=== PATIENT | male | born 1935 | race Two or more races ===

== ENCOUNTER 2023-08-29 20:18 | Inpatient (IN) | payer MEDICAID ==
[~2023-08-29] VITALS: Ht 152.4 cm; Wt 71.7 kg
[2023-08-29] MEDS ORDERED: hydrALAZINE HCL 20 MG/1 ML VIAL ONE ×2 (20:44→22:43)
[2023-08-29] MEDS: hydrALAZINE HCL 20 MG/1 ML VIAL IV ONE ×2 (20:45→22:48)
[2023-08-29 20:59] LABS: BASOPHILS % (AUTO) 0.3 % (0.0-2.0); EOSINOPHILS # (AUTO) 0.5 K/uL (0.0-0.7); EOSINOPHILS % (AUTO) 4.6 % (0.0-7.0); HEMATOCRIT 43.9 % (36.7-47.1); HEMOGLOBIN 14.8 g/dL (12.5-16.3); LYMPHOCYTES # (AUTO) 2.4 K/uL (0.8-4.8); LYMPHOCYTES % (AUTO) 21.8 % (20.5-51.5); MEAN CORPUSCULAR HEMOGLOBIN 29.5 uug (23.8-33.4); MEAN CORPUSCULAR HGB CONC 34 g/dL (32.5-36.3); MEAN CORPUSCULAR VOLUME 87.3 fL (73.0-96.2); MONOCYTES # (AUTO) 1.1 K/uL (0.1-1.30); MONOCYTES % (AUTO) 9.7 % (0.0-11.0); NEUTROPHILS # (AUTO) 7.1 K/uL (1.8-8.9); NEUTROPHILS % (AUTO) 63.6 % (38.5-71.5); PLATELET COUNT (AUTO) 304 K/uL (152-348); RED BLOOD CELL COUNT(AUTO) 5.03 MIL/uL (4.06-5.63); RED CELL DISTRIBUTION WIDTH 13.4 % (12.1-16.2); WHITE BLOOD COUNT (AUTO) 11.1 K/uL (3.6-10.2)
[2023-08-29 21:06] LABS: CALCIUM 9.1 mg/dL (8.5-10.1); CARBON DIOXIDE 29 mmol/L (21-32); CHLORIDE 91 mmol/L (98-107); GLUCOSE 115 mg/dL (74-106); POTASSIUM 3.2 mmol/L (3.5-5.1); SODIUM SERUM 133 mmol/L (136-145); UREA NITROGEN, BLOOD 5 mg/dL (7-18)
[2023-08-29 21:20] LABS: ALANINE AMINOTRANSFERASE 16 U/L (16-63); ALBUMIN 4.4 g/dL (3.4-5.0); ALKALINE PHOSPHATASE 78 U/L (50-136); ASPARTATE AMINOTRANSFERASE 17 U/L (15-37); BILIRUBIN,DIRECT 0.2 mg/dL (0.0-0.2); BILIRUBIN,TOTAL 0.5 mg/dL (0.2-1.0); NT-PRO BNP 547 pg/mL (0-125); TOTAL PROTEIN, SERUM 8.7 g/dL (6.4-8.2)
[2023-08-29] MEDS ORDERED: SWABABLE VALVE TRANSFER SET EA MC ONE (22:53)
[2023-08-29] MEDS ORDERED: IV NORMAL SALINE 250 ML IV ONE (22:53)
[2023-08-29] MEDS ORDERED: IOHEXOL 350 100 ML INFUS..BTL ONE (22:54)
[2023-08-29] MEDS: IV NORMAL SALINE 1000 ML BAG IV ONE (23:15)
[2023-08-30] VITALS (13 sets, daily range): BP systolic 97–186; BP diastolic 53–106; TEMP 97.4–98.3; O2SAT 95–98
[2023-08-30] MEDS ORDERED: hydrALAZINE HCL 20 MG/1 ML VIAL ONE ×2 (02:42→06:43)
[2023-08-30] MEDS: hydrALAZINE HCL 20 MG/1 ML VIAL IV ONE (02:50)
[2023-08-30] MEDS ORDERED: ACETAMINOPHEN 325 MG TABLET PO PRN (04:30)
[2023-08-30] MEDS ORDERED: POTASSIUM CHLORIDE 20 MEQ POWDER PACKET PO ONE (04:30)
[2023-08-30] MEDS ORDERED: ONDANSETRON 4 MG/2 ML VIAL IV PRN (04:30)
[2023-08-30] MEDS ORDERED: MAGNESIUM HYDROXIDE 30 ML LIQUID UDC PO PRN (04:30)
[2023-08-30] MEDS ORDERED: NICARDIPINE IN NS 200 ML IV PRN ×2 (06:30→08:15)
[2023-08-30] MEDS ORDERED: DILTIAZEM HCL 25 MG IV ONE (06:35)
[2023-08-30] MEDS: hydrALAZINE HCL 20 MG/1 ML VIAL IV PRN (06:44)
[2023-08-30] MEDS: DILTIAZEM HCL IV 10 MG in IV DEXTROSE 5% 100 ML IV ONE (06:47)
[2023-08-30] MEDS: hydrALAZINE HCL 50 MG TABLET PO SCH (08:33)
[2023-08-30] MEDS: POTASSIUM CHLORIDE 20 MEQ TAB.PRT.SR PO ONE (08:34)
[2023-08-30] MEDS: LOSARTAN POTASSIUM 50 MG TABLET PO SCH (08:34)
[2023-08-30 10:04] LABS: BASOPHILS # (AUTO) 0.1 K/UL (0.0-0.2); BASOPHILS % (AUTO) 0.8 % (0.0-2.0); EOSINOPHILS # (AUTO) 0.1 K/uL (0.0-0.7); EOSINOPHILS % (AUTO) 0.7 % (0.0-7.0); HEMATOCRIT 45.2 % (36.7-47.1); HEMOGLOBIN 15.1 g/dL (12.5-16.3); LYMPHOCYTES # (AUTO) 1.4 K/uL (0.8-4.8); LYMPHOCYTES % (AUTO) 8.8 % (20.5-51.5); MEAN CORPUSCULAR HEMOGLOBIN 29.2 uug (23.8-33.4); MEAN CORPUSCULAR HGB CONC 34 g/dL (32.5-36.3); MEAN CORPUSCULAR VOLUME 87.1 fL (73.0-96.2); MONOCYTES # (AUTO) 1.6 K/uL (0.1-1.30); MONOCYTES % (AUTO) 10.1 % (0.0-11.0); NEUTROPHILS # (AUTO) 12.9 K/uL (1.8-8.9); NEUTROPHILS % (AUTO) 79.6 % (38.5-71.5); PLATELET COUNT (AUTO) 355 K/uL (152-348); RED BLOOD CELL COUNT(AUTO) 5.18 MIL/uL (4.06-5.63); RED CELL DISTRIBUTION WIDTH 13.6 % (12.1-16.2); WHITE BLOOD COUNT (AUTO) 16.2 K/uL (3.6-10.2)
[2023-08-30 10:08] LABS: DIFFERENTIAL COMMENT 1
[2023-08-30 10:12] LABS: CALCIUM 9.2 mg/dL (8.5-10.1); POTASSIUM 3.2 mmol/L (3.5-5.1)
[2023-08-30 10:18] LABS: ALBUMIN 4.3 g/dL (3.4-5.0); BILIRUBIN,TOTAL 0.7 mg/dL (0.2-1.0); MAGNESIUM 2.1 mg/dL (1.8-2.4); PHOSPHOROUS 1.8 mg/dL (2.5-4.9); TOTAL PROTEIN, SERUM 8.3 g/dL (6.4-8.2)
[2023-08-30 10:26] LABS: THYROID STIMULATING HORMONE 8.993 mIU/mL (0.358-3.740)
[2023-08-30] MEDS: CARVEDILOL 12.5 MG TABLET PO SCH (12:53)
[2023-08-30] MEDS ORDERED: OLME20TA13 PO (14:05)
[2023-08-30] MEDS ORDERED: AMLO10TA59 PO (14:05)
[2023-08-30] MEDS: NEUTRA PHOS PACKET PO ONE (15:03)
[2023-08-30] MEDS: NIFEdipine XL 90 MG TABSR PO SCH (20:36)
[2023-08-30] MEDS: ASPIRIN EC 81 MG TABLET.DR PO ONE (20:36)
[2023-08-30] MEDS: ATORVASTATIN 40 MG TABLET PO SCH (20:36)
[2023-08-30] MEDS ORDERED: CEFTRIAXONE /D5W 50ML IVPB **ER PYXIS IV ONE (20:55)
[2023-08-30] MEDS: CEFTRIAXONE 1 G in IV DEXTROSE 5% 50 ML IV SCH (21:49)
[2023-08-31] VITALS: BP 120/72; TEMP 98.1; O2SAT 93
[2023-08-31 06:00] VITALS: BP 123/65; TEMP 98
[2023-08-31 07:14] LABS: BASOPHILS % (AUTO) 0.2 % (0.0-2.0); EOSINOPHILS # (AUTO) 0.9 K/uL (0.0-0.7); EOSINOPHILS % (AUTO) 6.2 % (0.0-7.0); HEMATOCRIT 41.1 % (36.7-47.1); HEMOGLOBIN 13.7 g/dL (12.5-16.3); LYMPHOCYTES # (AUTO) 2.3 K/uL (0.8-4.8); LYMPHOCYTES % (AUTO) 16.9 % (20.5-51.5); MEAN CORPUSCULAR HEMOGLOBIN 29.4 uug (23.8-33.4); MEAN CORPUSCULAR HGB CONC 33 g/dL (32.5-36.3); MEAN CORPUSCULAR VOLUME 88.4 fL (73.0-96.2); MONOCYTES # (AUTO) 1.2 K/uL (0.1-1.30); NEUTROPHILS # (AUTO) 9.3 K/uL (1.8-8.9); NEUTROPHILS % (AUTO) 67.7 % (38.5-71.5); PLATELET COUNT (AUTO) 326 K/uL (152-348); RED BLOOD CELL COUNT(AUTO) 4.65 MIL/uL (4.06-5.63); RED CELL DISTRIBUTION WIDTH 13.9 % (12.1-16.2); WHITE BLOOD COUNT (AUTO) 13.8 K/uL (3.6-10.2)
[2023-08-31 07:18] LABS: DIFFERENTIAL COMMENT 1
[2023-08-31 07:25] LABS: ALANINE AMINOTRANSFERASE 22 U/L (16-63); ALKALINE PHOSPHATASE 68 U/L (50-136); ASPARTATE AMINOTRANSFERASE 22 U/L (15-37); BILIRUBIN,TOTAL 0.7 mg/dL (0.2-1.0); CARBON DIOXIDE 28 mmol/L (21-32); CHLORIDE 96 mmol/L (98-107); CREATININE 1.5 mg/dL (0.6-1.3); GLUCOSE 113 mg/dL (74-106); POTASSIUM 3.5 mmol/L (3.5-5.1); SODIUM SERUM 133 mmol/L (136-145); TOTAL PROTEIN, SERUM 7.5 g/dL (6.4-8.2); UREA NITROGEN, BLOOD 13 mg/dL (7-18)
[2023-08-31 09:00] VITALS: TEMP 97.9; O2SAT 100
[2023-08-31] MEDS: LORAZEPAM 1 MG TABLET PO PRN (09:38)
[2023-08-31] MEDS: LEVOTHYROXINE SODIUM 25 MCG TABLET PO SCH (09:39)
[2023-08-31] MEDS: ASPIRIN EC 81 MG TABLET.DR PO SCH (09:39)
[2023-08-31 09:47] LABS: MAGNESIUM 2.2 mg/dL (1.8-2.4); PHOSPHOROUS 2.3 mg/dL (2.5-4.9)
[2023-08-31 11:59] LABS: *BLOOD, URINE NEGATIVE (NEGATIVE); *CLARITY,URINE CLEAR (CLEAR); *COLOR,URINE YELLOW (YELLOW); *KETONES,URINE TRACE (NEGATIVE); *PROTEIN,URINE 2+ (NEGATIVE); *UROBILINOGEN,URINE 0.2 E.U./dl (NORMAL); LEUKOCYTE ESTERASE ,URINE NEGATIVE (NEGATIVE); NITRITE, URINE NEGATIVE (NEGATIVE); PH,URINE 5.5 (5.0-8.0); UGLUCOSE NEGATIVE (NEGATIVE)
[2023-08-31 12:01] LABS: *BILIRUBIN,URIN 1+ (NEGATIVE)
[2023-08-31 12:38] LABS: RBC,URINE NONE SEEN /HPF (0-3); SQUAMOUS EPITHELIAL CELL,UR FEW /HPF (NONE SEEN); WBC,URINE 0-3 /HPF (0-3)
[2023-08-31 12:39] LABS: BACTERIA,URINE MODERATE /HPF (NONE SEEN)
[2023-08-31 15:06] VITALS: BP 138/69; TEMP 97.8; O2SAT 94
[2023-08-31] MEDS: NEUTRA PHOS PACKET PO ONE (15:36)
[2023-08-31] MEDS ORDERED: NIFE90TA61 PO (15:50)
[2023-08-31] MEDS ORDERED: ASPI-618 PO (15:50)
[2023-08-31] MEDS ORDERED: CARV12.52 PO (15:50)
[2023-08-31] MEDS ORDERED: LEVO25TA9 PO (15:50)
[2023-08-31] MEDS ORDERED: ATOR40TA PO (15:50)
[2023-08-31] MEDS ORDERED: LOSA50TA3 PO (15:50)
== END 2023-08-31 16:35 | disposition home or self-care (01) | DRG 199 ==
LOC: ER 20:20 → CCU 08-30 03:20 → TELE3 08-30 18:48 → MEDSURG3 08-31 09:30
PROVIDERS: ATTEND Internal Medicine
DX: I16.0 Hypertensive urgency (principal); I21.A1 Myocardial infarction type 2; D68.59 Other primary thrombophilia; E83.39 Other disorders of phosphorus metabolism; J90 Pleural effusion, not elsewhere classified; I1A.0 Resistant hypertension; E66.9 Obesity, unspecified; Z68.30 Body mass index [BMI] 30.0-30.9, adult; I69.320 Aphasia following cerebral infarction; I69.398 Other sequelae of cerebral infarction; H91.93 Unspecified hearing loss, bilateral; E87.6 Hypokalemia; E03.9 Hypothyroidism, unspecified; E78.5 Hyperlipidemia, unspecified; G93.89 Other specified disorders of brain; M17.0 Bilateral primary osteoarthritis of knee; D72.829 Elevated white blood cell count, unspecified; J98.11 Atelectasis; I11.9 Hypertensive heart disease without heart failure; F01.50 Vascular dementia, unspecified severity, without behavioral disturbance, psychotic disturbance, mood disturbance, and anxiety; Z79.899 Other long term (current) drug therapy; R94.31 Abnormal electrocardiogram [ECG] [EKG]; R00.0 Tachycardia, unspecified; N14.11 Contrast-induced nephropathy; T50.8X5A Adverse effect of diagnostic agents, initial encounter; Y92.538 Other ambulatory health services establishments as the place of occurrence of the external cause
CPT/HCPCS: 36415; 70450; 71045; 83605; 83735; 84100; 84443; 84484; 85025; 85730; 93005; 93307; A4606; A4663; C1758; G0378; J0360; J0696; J3490; J7040; Q9967